=== PATIENT | male | born 1935 | race Caucasian/White ===

== ENCOUNTER 2016-11-03 17:30 | Inpatient (IN) | payer MEDICARE ==
[~2016-11-03] VITALS: Ht 165.1 cm; Wt 66.7 kg
--- NOTE | ~2016-11-03 | OR ---
PATIENT'S NAME: TORIN MICHELLE [facility] AGE: 81 Y [address] ROOM: [address] [address] LOCATION: [facility] ADMIT DATE: 11/03/2016 OR/Procedure Report DISCHARGE DATE: FAMILY PHYSICIAN: PHYSICIAN, NO ATTENDING PHYSICIAN: PEDRO LUIS WAGONER SURGEON: Jung Cristina MD GLUER: DATE OF PROCEDURE: 11/04/2016 DIAGNOSIS: Infected internal fixation, left ankle. PROCEDURE: 1. Removal of deep instrumentation, left ankle. 2. Irrigation and debridement left ankle wounds. 3. Aspiration of ankle joint. 4. Cultures. ANESTHESIA: General. INDICATION: Mr. Michelle is 31 year status post open reduction and internal fixation of left ankle. Over the last week, the left ankle has become painful, red, and swollen, has not responded to antibiotics. X-ray imaging shows a healed ankle fracture with medial malleolar screws x2 and lateral plate fixation with seven screws. One of the screws is backing out on examination, almost coming through the skin, perhaps related to the onset of infection. At this time, with the infected instrumentation, removal is indicated. We will also do an aspirate of the ankle joint. Risks, benefits, and alternatives have been discussed. DESCRIPTION OF PROCEDURE: Mr. Michelle was taken to the operating room, has not received any antibiotics at the [facility]. He did receive antibiotics on the outside since Tuesday. Schedule is not completely clear. General anesthetic via endotracheal tube. Tourniquet high about the left thigh. Left leg prepared with DuraPrep, draped sterilely. Fluoroscope was used, identified the location of the medial malleolar screws, a 1 cm transverse incision was made, both screws were removed without difficulty. The wound was debrided. The screw almost coming through the skin distally on the lateral side, 1 cm longitudinal incision, screw easily removed. There was purulence, this was cultured. Aerobic, anaerobic, fungal, and TB cultures of the fluoroscope, and an additional four small incisions made over the plate and allowed removal of the other six screws, small osteotome was used to elevate the subcutaneous tissues off the plate and also elevate the plate off the bone. The plate was removed without difficulty. The wound was irrigated. The ankle joint, there was no clear effusion, not suggestive of a septic joint, but an aspiration was taken of the joint. I did not feel there was a PATIENT'S NAME: TORIN MICHELLE [facility] AGE: 81 Y [address] ROOM: [id number] [place], [place] [address] LOCATION: [facility] ADMIT DATE: 11/03/2016 OR/Procedure Report DISCHARGE DATE: FAMILY PHYSICIAN: PHYSICIAN, NO ATTENDING PHYSICIAN: PEDRO LUIS WAGONER need to open the joint, do a formal arthrotomy. The stab wounds largely were opposed on their own with the infection, safe is not to close them, was wrapped with a bulky dressing soaked in normal saline and a K-pad for warm moist heat. After the cultures were taken, was started on vancomycin and Zosyn. Procedure was done without complication. Tourniquet time was 35 minutes. No blood loss. Specimens was an aspiration of the left ankle joint, which was bloody. No suggestion of purulence was sent for cultures. Cultures of the infected fixation were sent for aerobic, anaerobic, fungal, and TB cultures. Wounds left open and placed in a bulky saline soaked dressing with warm heat. JUNG CRISTINA MD DPM/mata /[id number] d: 11/04/162029 t: 11/24/16 1006, OPERATIVE SUMMARY
--- NOTE | ~2016-11-03 | DS ---
PATIENT'S NAME: TORIN LOZOYA [facility] AGE: 81 Y [address] ROOM: [address] [place], [place] [address] LOCATION: [facility] ADMIT DATE: 11/03/2016 Discharge Summary DISCHARGE DATE: 11/12/2016 FAMILY PHYSICIAN: PHYSICIAN, NO ATTENDING PHYSICIAN: Valeria Osborne PRINCIPAL DIAGNOSES: 1. Left ankle septic arthritis, culture negative. 2. Left shoulder gouty arthritis. 3. Severe physical deconditioning. 4. Protein-calorie malnutrition, [id number]. HOSPITAL COURSE: Please reference any admitting data to the history and physical as dictated by Dr. Osborne. 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 He was seen at his local facility and was given a shot of Rocephin and started on oral clindamycin. It did not get any better and he presented with fevers and worsening pain. He had an elevated CRP in the 50s and elevated procalcitonin level. There was some issues with transferring him from the outside facility to [facility] and with concerns of him becoming septic he was given IV vancomycin and IV cefepime and then transferred to [facility]. He was then admitted at [facility] and was consulted with Orthopedics and taken for surgery with Dr. Rm of Orthopedics after risks, benefits, and alternatives were discussed. The patient underwent removal of deep instrumentation of the left ankle, extensive irrigation and debridement, as well as aspiration of the ankle joint. He was kept on vancomycin and cefepime postoperatively. He was made nonweightbearing to that lower extremity and started on physical and occupational therapy. Infectious Disease consultation was obtained with Dr. Darnell. Cultures were observed and it did not grow anything. He did spike some low-grade fevers postoperatively. Initially, they were felt to be probable postoperative atelectasis because of his decreased mobility. We were unable to give him acetaminophen or NSAIDs because of history of allergies. He had no white count changes or appearance of any further infectious process. He did however complain of worsening left shoulder pain; so, Dr. Rm performed an aspiration of the shoulder, which did not appear to be infected in fact cultures were negative, but initial Gram stain did show positive for crystals. Steroids were considered, but not given in light of the infection in the ankle. Now with left upper extremity range of motion deficit and pain and nonweightbearing to the left lower extremity, it was extremely difficult for him to mobilize. He was requiring 2 person assist and total lift by nursing care; so, we investigated transition options for the patient. In the meantime, the patient did develop some edema in the left upper extremity, venous Doppler scan showed positive subacute occlusive superficial thrombosis in the left cephalic vein. As this is superficial, he was not treated with PATIENT'S NAME: TORIN LOZOYA [facility] AGE: 81 Y [address] ROOM: [place] [address] LOCATION: [facility] ADMIT DATE: 11/03/2016 Discharge Summary DISCHARGE DATE: 11/12/2016 FAMILY PHYSICIAN: , ANNE ATTENDING PHYSICIAN: Valeria Osborne anticoagulation; however, started on DVT prophylactic Lovenox without any complication. In discussion with consultation of Infectious Disease, it was felt that the patient best transition from IV vancomycin and IV cefepime to continued IV vancomycin and oral Cipro. Vancomycin peak and trough levels were monitored as well as kidney function without any problems. It was recommended 4 to 6 week antibiotics with a followup at 4 weeks with Infectious Disease to see the progress of the wound. Wet-to-dry dressing changes were ordered twice daily as per Orthopedics. By day of discharge, the patient had improved; however, not safe for return to home and so was transitioned to [facility]. CONSULTING PROVIDERS: 1. Dr. Jung Rm, Orthopedics. 2. Dr. Srinivasa Darnell of Infectious Disease. PROCEDURES: 1. Removal of hardware, irrigation and debridement, aspiration of the ankle joint on 11/04/[address] Jung Rm. 2. Aspiration of left shoulder joint on November 06. RADIOLOGIC IMAGING: Pertinent information with radiologic imaging was that the patient did undergo an MRI of the left ankle postoperatively on 11/06/2016, which did not show any MRI findings of osteomyelitis. Postoperative changes were present as expected with soft tissue swelling and edema. LABORATORY RESULTS: Initial CBC showed a mildly elevated white count of 13,000, normal hemoglobin of 12.1, hematocrit 34.5, and a platelet count 211. Creatinine was normal throughout his stay. Liver functions were normal. Sed rate on 11/05/2016 showed 41 and a CRP on 11/05/2016 showed a CRP of 15.60. Gram stain of the left shoulder aspirate was positive for crystals. MICROBIOLOGY DATA: Left shoulder aspirate did not show any fungal elements, fungal culture was negative, and body fluid culture was negative. Blood cultures x2 were no growth. Left ankle aspirate culture was no growth. DISCHARGE MEDICATIONS: 1. Vancomycin 750 mg IV every 8 hours with a stop date of December 15, 2016. 2. Ciprofloxacin 500 mg p.o. twice daily, stop date of December 15, 2016. 3. Colace 100 mg p.o. twice daily. 4. Dulcolax 10 mg per rectum as needed for constipation. 5. Dilaudid 2 mg p.o. every 3 hours as needed for pain. PATIENT'S NAME: TORIN LOZOYA [facility] AGE: 81 Y [address] ROOM: [place] [address] LOCATION: [facility] ADMIT DATE: 11/03/2016 Discharge Summary DISCHARGE DATE: 11/12/2016 FAMILY PHYSICIAN: PHYSICIAN, NO ATTENDING PHYSICIAN: Valeria Osborne 6. Milk of magnesia 30 mL p.o. twice daily as needed for constipation. 7. Ultram 50 mg p.o. every 4 hours as needed. 8. Blackwood-3 acid 1 g p.o. everyday. 9. Multivitamin 1 tablet p.o. everyday. 10. Lovenox 40 mg subcutaneous daily. DISCHARGE INSTRUCTIONS: The patient will be discharged to the [facility] by ambulance. Ambulance certification form was completed. The patient will remain full code status. His diet as tolerated. Weightbearing status is nonweightbearing to the left lower extremity with continued Occupational and Physical Therapy to continue to evaluate and treat the patient as indicated. He will need followup with his orthopedist Dr. Rm on 11/29/2016 at 1315 hours. Prior to his followup, he should have a left ankle x-ray on 11/29/2016 at noon for further evaluation. He does have a wound to the ankle area that will require b.i.d. wet-to-dry dressing changes with normal saline. If there is any questions about the dressing changes, Orthopedics to be consulted. Continued use of assistive device for mobility is recommended with fall precautions. Infectious Disease has recommended to follow up within the week of 12/01/2016 for antibiotic management. We have written for a weekly CBC, CMS, CRP, and sed rate to be faxed to the Infectious Disease doctors. I spoke with the accepting physician at the facility whom stated they have Telemedicine Infectious Disease, which they will provide consultation with upon his arrival to the swing bed. Routine PICC line cares were ordered. His rehab potential and discharge potential are both good and the patient and family are well- aware of his condition and prognosis. All questions were answered with statements of satisfaction. Total time arranging discharge was greater than 30 minutes. ANDRA ROCK APRN, APRN FOR MD BRANDO TOMPKINS/mata /[id number] CC: MD Dr. Rafi Fox [place] d: t: 11/15/16 1550, DISCHARGE SUMMARY
--- NOTE | ~2016-11-03 | OR ---
PATIENT'S NAME: TORIN MICHELLE [facility] AGE: 81 Y [address] ROOM: [place] [address] LOCATION: [facility] ADMIT DATE: 11/03/2016 OR/Procedure Report DISCHARGE DATE: FAMILY PHYSICIAN: PHYSICIAN, NO ATTENDING PHYSICIAN: PEDRO LUIS WAGONER SURGEON: Jung Cristina MD METAL BUFFER: DATE OF PROCEDURE: 11/06/2016 DIAGNOSES: 1. Left shoulder pain. 2. Recurring fevers. 3. On antibiotics. PROCEDURE: Aspiration of left shoulder joint. ANESTHESIA: Local. INDICATION: Mr. Michelle has been on a variety of antibiotics over the last week, has infection of an internal fixation of the left ankle and cellulitis about the left ankle and foot, that resolved; but he continues to have recurring fevers; today, he has significant left shoulder pain. Aspiration is indicated. DESCRIPTION OF PROCEDURE: At the bedside, the patient was positioned in a sitting position. Left shoulder was posteriorly prepared with Betadine painting, sterile field with drapes; 2 mL of 1% lidocaine infused at the entry point. An 18-gauge spinal needle was advanced into the shoulder joint. The shoulder was gently rotated which confirmed a good position. Aspirated 10 mL of cloudy fluid sent for crystals, cell count, and cultures with staining. Cultures included aerobic, anaerobic, fungal, and TB. Procedure done without complication. JUNG CRISTINA MD DPM/mata /[id number] d: 11/06/16 1705 t: 11/24/16 1008, OPERATIVE SUMMARY
--- NOTE | ~2016-11-03 | HP ---
PATIENT'S NAME: TORIN LOZOYA [facility] AGE: 81 Y [address] ROOM: [id number] [place], [place] [address] LOCATION: [facility] ADMIT DATE: 11/03/2016 History & Physical DISCHARGE DATE: FAMILY PHYSICIAN: PHYSICIAN, NO ATTENDING PHYSICIAN: PEDRO LUIS WAGONER DATE OF SERVICE: 11/03/2016 CHIEF COMPLAINT: Pain in the left ankle. HISTORY OF PRESENT ILLNESS: Mr. Miguel Angel (Joe) is an 81-year-old gentleman from [place], spent a lot of time in [place] and thus has had multiple traumas and fractures during his lifetime. He had had an ORIF of severe ankle injury in 1983. This was fine up until this past weekend after on Sunday, October 30, 2016, he developed pain after loading a massive railroad ties into a truck. On Tuesday, the pain was more severe, and he had called a neighbor who took him to a nurse practitioner on Tuesday, November 01, 2016, where he revealed he had a low-grade temperature of about 100.3 at home. At that time, his evaluation showed that he had a relatively benign past medical history with only taking multivitamins and fish oils at home. He had a low-grade fever and some increased swelling and redness in the left ankle joint with significant pain. He was given Rocephin IM and started on clindamycin t.i.d. He returned there this morning and had a temperature of 100.7, persisting his white count from Tuesday was 12.5. His sedimentation rate was 8. His lactate had been normal, but the send out results of CRP and procalcitonin came back at 54.8 and 0.17 respectively, and I agreed to accept him in transport. Few hours later, I was called back by Elizabeth Li, the nurse practitioner in [place], [place], who said she was having trouble arranging ambulance transport. During the interval, the patient had new results of urine specific gravity greater than 1.030, 2+ blood, and 2+ protein in the urine, but no white cells and no bacteria as temperature had spiked to 101.9, but he continued to have a systolic blood pressure in the 140s. Because of the fever, he was started on vancomycin and cefepime, and these were completed before he arrived here at about 6:00 p.m. this evening. The patient does report allergies to Tylenol, aspirin, and ibuprofen, all of which cause severe difficulty breathing and so these were not administered to him, and his temperature has come down to 99.3 on admission. PAST MEDICAL HISTORY: 1. Multiple fractures. PATIENT'S NAME: TORIN LOZOYA [facility] AGE: 81 Y [address] ROOM: [address] [address] LOCATION: [facility] ADMIT DATE: 11/03/2016 History & Physical DISCHARGE DATE: FAMILY PHYSICIAN: PHYSICIAN, NO ATTENDING PHYSICIAN: PEDRO LUIS WAGONER 2. Osteoarthritis. 3. History of warfarin use for unclear etiology. 4. Severe trauma in the mid with pneumothorax and crush injury to his spleen. 5. Skin cancer with 2 lesions removed from his back and 1 from his arm. PAST SURGICAL HISTORY: 1. ORIF to the left ankle in 1983. 2. 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 3. He had a splenectomy in 1989. FAMILY HISTORY: His mother of an RI around 69 years old. His father of what was thought to be metastatic stomach cancer at age 84. He has had multiple siblings, who had cancer. He had a brother who of some sort of bleeding disorder and multiple siblings with clotting disorders. In addition, his daughter has had cervical cancer and clotting disorder. SOCIAL HISTORY: He has been twice. 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 He has never smoked or drank. He has never been in the . ALLERGIES: PENICILLIN, TYLENOL, ALEVE, IBUPROFEN. ABOVE, TYLENOL, ALEVE, AND IBUPROFEN CAUSED SEVERE DYSPNEA. IMMUNIZATIONS: He denies being aware of having a pneumococcal vaccine. He denies influenza and shingles vaccine. REVIEW OF SYSTEMS: GENERAL: He weighs around 130. His baseline weight was 155-165. He reports low appetite, but his daughter reports this is essentially stable. He has had some additional fatigue and fever since his illness over the past 3 days. HEENT: He denies headache or blurred vision. He does have cataracts. He does not wear glasses. He denies sinus drainage, nosebleeds, sore throat, dysphagia, odynophagia. PULMONARY: He has had a dry cough with a history of pneumothorax, and he reports some shortness of breath. He says he just does not take a full breath. Otherwise, denies wheezing, chest pain, or orthopnea. His daughter reports that he does have some sleep apnea but he has not been tested. CARDIOVASCULAR: He has never had an RI. He denies heart pain, angina, racing heart, or ankle edema. GI: He denies GERD, nausea, vomiting, diarrhea, or constipation. He has had PATIENT'S NAME: TORIN LOZOYA [facility] AGE: 81 Y [address] ROOM: [address] [address] LOCATION: [facility] ADMIT DATE: 11/03/2016 History & Physical DISCHARGE DATE: FAMILY PHYSICIAN: PHYSICIAN, NO ATTENDING PHYSICIAN: PEDRO LUIS WAGONER no hematemesis, hematochezia, or melena. GENITOURINARY: He denies polyuria, nocturia, or frequent UTIs. NEUROLOGIC: He denies weakness, numbness, confusion, dysarthria, syncope, frequent falls, loss of balance, or memory loss. HEMATOLOGIC: There is a family history of blood disorders, and his daughter reports he had been on warfarin at some point, although he cannot tell me why he does not even take aspirin now though. MUSCULOSKELETAL: Joints and muscles as in the history above, he does have arthritis, history of multiple injuries, although there is no acute injury to this left ankle except for that he was lifting something heavy. ENDOCRINE: He has had night sweats for the past 2 nights, likely related to the fever with the ankle possible infection. DERMATOLOGIC: His skin is very weathered, has sun damage, and history of skin cancer, but no current rashes besides the erythema on the left ankle. PSYCHIATRIC: He has insomnia, but denies depression, anxiety, or other psychiatric illness. INFECTIOUS DISEASE: He denies any open wounds. He denies any foreign travel. HOME MEDICATIONS: 1. Multivitamin daily. 2. Fish oil daily. PHYSICAL EXAMINATION: GENERAL: This is a petite elderly male, who is bright and alert. HEENT: He does have significant temporal wasting. His eyes are blue. The left pupil is slightly smaller than the right, both are equal and reactive. Sclerae are anicteric. Palpebral conjunctivae. Conjunctivae are pink without exudate. The oropharynx is clear. He is edentulous. The soft palate lifts symmetrically. NECK: Supple without lymphadenopathy or thyromegaly. He is very tender on the lateral nodule on his right clavicle. There is no supraclavicular lymphadenopathy. LUNGS: Clear to auscultation and percussion bilaterally, very slightly tachypneic. There is no wheeze or other adventitious breath sounds. No CVA tenderness. No vertebral tenderness. CARDIOVASCULAR: Regular rate and rhythm without murmur, rub, or gallop. ABDOMEN: Flat, soft, nontender with hyperactive bowel sounds. There is no hepatosplenomegaly or masses. EXTREMITIES: There is no edema of the right foot. Pulses are 2+ and equal in upper and lower extremities. The left foot is chronically enlarged status post operative changes, and he does have edema there, slight pitting, and mild erythema which is patchy over the dorsum of the foot and of the medial and lateral malleoli. It is mildly tender. Strength in his extremities appears to be normal. NEUROLOGIC: He is alert and oriented to person, place, and time. PATIENT'S NAME: TORIN LOZOYA [facility] AGE: 81 Y [address] ROOM: [place] [address] LOCATION: [facility] ADMIT DATE: 11/03/2016 History & Physical DISCHARGE DATE: FAMILY PHYSICIAN: PHYSICIAN, NO ATTENDING PHYSICIAN: PEDRO LUIS WAGONER LABORATORY DATA: There is no new laboratory data from our facility. These labs were collected on 11/01/2016: White blood cell 12.5; neutrophils, absolute 9.1, 72.7%; lymphs 2.06 absolute and 16.2%; monos 10%; eos 0.4%; basos 0.5%; hemoglobin 14.4; hematocrit 44.9; MCV is 91; platelets were 228. Sedimentation rate was 8. His uric acid was 3.9, glucose 129, BUN 14, creatinine 0.9. Sodium 134, potassium 4.1, chloride 99, CO2 of 27, calcium 8.8, total protein 7.4, albumin 3.8, total bilirubin 1.5. This is slightly high according to the range which is 0.2-1.3. AST 25, ALT 30, alkaline phosphatase 77. Lactic acid was 1.2. Procalcitonin 0.17, the normal was 0.09. CRP 54.8. A clean catch on November 01, 2016, showed slightly cloudy yellow urine, glucose negative, bilirubin negative, ketones negative, blood trace, protein negative, nitrite negative, leukocyte esterase negative, and cast negative. Today, his platelet count is 208, his white blood cell count is 13.1. Blood in the urine has increased to 2+. Specific gravity was greater than 1.030. There is no radiographic imaging at this point. ASSESSMENT AND PLAN: 1. Septic arthritis, possible osteomyelitis, given the very high CRP. We will continue the antibiotic started empirically in the outlying facility due to his high fever with Vanco and cefepime and consult pharmacy for dosing. He has been seen by Dr. Darnell, who agrees with this plan, and we will reassess plans for antibiotics and other follow up after we hear from Dr. Rm with plan regarding possible removal of the hardware. 2. Generalized arthritis and pain. We have to avoid use of Tylenol, ibuprofen, or Aleve. We will give him morphine for severe pain. 3. Status post splenectomy. He will need the pneumococcal vaccines. This will be initiated at discharge. 4. DVT prophylaxis with SCDs prior to surgical intervention. DISPOSITION: Disposition will be decided according to any operative intervention that needs to be done. PEDRO LUIS WAGONER MD LM/mata /[id number] D: [id number] T: [id number] HISTORY & PHYSICAL
--- NOTE | ~2016-11-03 | CON ---
PATIENT'S NAME: TORIN MICHELLE [facility] AGE: 81 Y [address] ROOM: [id number] [place], [place] [address] LOCATION: G3N ADMIT DATE: 11/03/2016 Consultation DISCHARGE DATE: FAMILY PHYSICIAN: PHYSICIAN, NO ATTENDING PHYSICIAN: PEDRO LUIS WAGONER DATE OF CONSULTATION: 11/03/2016 REFERRING PHYSICIAN: Jung Rm MD REASON FOR CONSULTATION: Presumed septic left ankle. HISTORY OF PRESENT ILLNESS: Mr. Michelle is an 81-year-old male who sounds like he has really only had emergent care when he has had an injury in the past who since Tuesday he has had increasing pain and difficulty ambulating due to pain in his left ankle. He reports that many years ago he had a left ankle injury and fracture that required hardware placement and this was done in 1983. He had been doing okay, but recently had the pain in the left ankle and went ahead and was seen in the clinic. I checked some labs, gave him a shot of IM ceftriaxone, and gave him clindamycin 300 t.i.d. His symptoms worsened and he presented back today. He had also been having fevers, chills, and sweats. These started about the time that his left ankle pain really started. He resided back and was transferred down to [facility] in [place] for further evaluation and treatment. He denies any recent infections that he knows of. He is edentulous and had his teeth removed greater than 5 years ago. He has had a little sore in his right little toe, but has not had any need for treatment for it. He has not had any other specific things for infection. His daughter thinks he might have a sinus infection now because his eyes water, but he does not think there is anything going on there. He has had some weight loss over the years and he has normally between 155 and 165 and is down to 135. He notes that he has a poor appetite. He has never smoked. 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 It does not appear that he has had any immunizations related to this. This might have been in 1988 or 1994 and they are not really sure exactly when it happened. He was transferred down here for further evaluation. Infectious Disease was asked to see him in conjunction with Orthopedics. It sounds like Dr. Rm is going to see him and perhaps do a surgery on him tomorrow on his ankle. PAST MEDICAL HISTORY: Significant for the multiple traumas, left ankle surgery with plating, he has had injury to the kidney and spleen, he is status post a splenectomy, it sounds like he had a pneumothorax, does not appear to have any chronic medical PATIENT'S NAME: TORIN MICHELLE [facility] AGE: 81 Y [address] ROOM: [address] [address] LOCATION: [facility] ADMIT DATE: 11/03/2016 Consultation DISCHARGE DATE: FAMILY PHYSICIAN: PHYSICIAN, NO ATTENDING PHYSICIAN: PEDRO LUIS WAGONER. MEDICATIONS: His only medications listed are for the clindamycin and then fish oil and a multivitamin. ALLERGIES: HE SAYS HE IS ALLERGIC TO TYLENOL AND ALL THE NONSTEROIDALS BECAUSE THEY CAUSE HIM TO PASS OUT. HE MENTIONED PENICILLIN WELL, BUT HAS TOLERATED THE CEPHALOSPORINS WELL. SOCIAL HISTORY: He has been doing [employer] for "50 years." He has been twice. He has a daughter and a son. He has never drank or used illicit drugs or smoked. FAMILY HISTORY: Noncontributory to his current illness. REVIEW OF SYSTEMS: All remaining review of systems otherwise negative with pertinent positives and negatives in his HPI. PHYSICAL EXAMINATION: GENERAL: He is a thin, elderly male, is not acutely toxic, he is awake, alert, spiked a temp up to 101.9, prior to transfer from [facility] to [facility]. HEENT: NC/AT. EOMI. Pupils react. His oropharynx, he is edentulous. There is no erythema. NECK: Supple. LUNGS: Clear. HEART: Regular S1, S2. ABDOMEN: Soft and nontender. EXTREMITIES: There is a little bit of edema around the left foot and ankle and there is erythema, it is warm, and it is not really tender. Right ankle and foot looks okay. He may have some onychomycosis. LABORATORY DATA: Data from [facility], he has a white count of 12.5, hemoglobin 14.2, and platelet count of 228. Creatinine of 0.9. Normal LFTs. On 11/01/2016, today, he had a white count of 13.1, hemoglobin of 14.6. Sed rate is 23. X- ray showed ORIF changes, atherosclerotic vascular disease, and soft tissue swelling. ASSESSMENT AND PLAN: 1. Likely, septic left ankle with hardware. Ortho eval, likely needs I and PATIENT'S NAME: TORIN MICHELLE [facility] AGE: 81 Y [address] ROOM: [address] [address] LOCATION: [facility] ADMIT DATE: 11/03/2016 Consultation DISCHARGE DATE: FAMILY PHYSICIAN: PHYSICIAN, NO ATTENDING PHYSICIAN: PEDRO LUIS WAGONER and hardware removal. We will see what culture show, but he has received broad-spectrum antibiotics thus far; so, may be difficult to get the organism, we will see what we find, and will likely need 4 to 6 weeks of intravenous antibiotics and again will depend on the getting organism and what grows and what routes of treatment we have available to us. 2. He has had a splenectomy, he needs Pneumovax and Prevnar as per normal immunization protocol. Likely, could get the meningococcal vaccine as well; however, his risk at his age and where he lives would probably be pretty small and the Pneumovax would be a bigger deal for him. We will follow along and please call with questions. MD ROSANGELA RICHEY/mata /[id number] d: 11/04/16 0234 t: 11/04/16 0838, CONSULTATION REPORT
--- NOTE | ~2016-11-03 | CON ---
PATIENT'S NAME: TORIN MICHELLE [facility] AGE: 81 Y [address] ROOM: [place] [address] LOCATION: [facility] ADMIT DATE: 11/03/2016 Consultation DISCHARGE DATE: FAMILY PHYSICIAN: PHYSICIAN, NO ATTENDING PHYSICIAN: PEDRO LUIS WAGONER DATE OF CONSULTATION: 11/03/2016 REFERRING PHYSICIAN: Jung Cristina MD TIME SEEN: 9 p.m. HISTORY OF PRESENT ILLNESS: Mr. Michelle is an 81-year-old white male, healthy, 30 years status post open reduction and internal fixation of a left ankle fracture. He has done well over the years. Denies ever having any infection. Tuesday without significant event, the skin about the left ankle became red, tender, and swollen. Local hospitalist started him on antibiotics, has not improved, became more painful and more swollen and more red over each day. MEDICATIONS: None. ALLERGIES: PENICILLIN, TYLENOL, AND MORPHINE. PAST MEDICAL HISTORY: Healthy. Does not smoke. Does not chew. No alcohol. No drug abuse. REVIEW OF SYSTEMS: As above. FAMILY MEDICAL HISTORY: Noncontributory. PERSONAL AND SOCIAL HISTORY: Lives independently. PHYSICAL EXAMINATION: GENERAL: White male, in no acute distress. HEENT: Hears and sees. NECK: Nontender. BACK: Mildly tender. HEART: Pulse rate is regular. LUNGS: Able to take in a deep breath. PATIENT'S NAME: TORIN MICHELLE [facility] AGE: 81 Y [address] ROOM: [place] [address] LOCATION: [facility] ADMIT DATE: 11/03/2016 Consultation DISCHARGE DATE: FAMILY PHYSICIAN: PHYSICIAN, NO ATTENDING PHYSICIAN: PEDRO LUIS WAGONER ABDOMEN: Soft. EXTREMITIES: Left ankle: Fixation on the lateral side, the most distal screw markedly prominent. There is redness about the lateral plate. There is also redness about the medial malleolar screws. Also, some redness on the dorsum of the foot. Not a significant effusion within the ankle. Markedly tender. Foot is neurovascularly intact. IMAGING: X-rays were reviewed. Left ankle fixation. 8-hole plate on the lateral side with 7 screws, distal screw was backed out. Medial side to medial malleolar screws in place. Fractures have all healed. Mild osteoarthritis. No bone destruction obvious. ASSESSMENT AND PLAN: Infection about the previous fixation of the left ankle. Fracture is healed. No need for fixation at this time. We will plan for removal of fixation and deep cultures. Risks, benefits, and alternatives have been discussed. Certainly, if there is obvious osteomyelitis, we will debride at the time of surgery. May require additional imaging of the foot if the infection does not resolve. Risks, benefits, and alternatives have all been discussed. JUNG CRISTINA MD DPM/mata /[id number] d: 11/04/16316 t: 11/24/16 1003, CONSULTATION REPORT
--- NOTE | ~2016-11-03 | ENPV ---
Vascular Upper Extremities Veins Procedure Demographics Patient Name TORIN LOZOYA Date of Study 11/11/2016 Patient Number [id number] Gender Male Date of 1935 Age 81 Visit Number [id number] Height Accession Number [id number] Weight Room Number G3305 BSA BMI Referring Bobby Lia Wilde PAC Interpreting Monico Posada MD Physician Dylon Shaw MD Physician Physician Ordering Physician Bobby Wilde PAC [employer] Developer Florencio Davis T, [facility] Conclusions Summary There is subacute occlusive superficial thrombus in the left cephalic vein in the forearm. Procedure Type of Study: Veins:Upper Extremities Veins, Upper Extremity Left. Indications for Study:Edema. Appropriate Use Criteria:8 Patient Status:Routine. Study Location:Inpatient Portable. Technical Quality:Adequate visualization. - Preliminary reported to:Lia Rosales and the patient's nurse at 1630. Velocities are measured in cm/s ; Diameters are measured in cm Right UE Vein Measurements 2D and Doppler Measurements + + + + +--------+ + !Location !Visualized !Compressibility !Thrombosis !Signal !Reflux ! + + + + +--------+ + !IJV !Yes !Yes !None !Phasic ! ! + + + + +--------+ + Left UE Vein Measurements 2D and Doppler Measurements + + + + +--------+--------+ !Location !Visualized !Compressibility !Thrombosis !Signal !Reflux ! + + + + +--------+--------+ !IJV !Yes !Yes !None !Phasic ! ! + + + + +--------+--------+ !SCV !Yes !Yes !None !Phasic ! ! + + + + +--------+--------+ !Innominate !Yes !Yes !None !Phasic ! ! + + + + +--------+--------+ !Axillary !Yes !Yes !None !Phasic ! ! + + + + +--------+--------+ !Brachial !Yes !Yes !None !Phasic ! ! + + + + +--------+--------+ !Radial !Yes !Yes !None !Phasic ! ! + + + + +--------+--------+ !Ulnar !Yes !Yes !None !Phasic ! ! + + + + +--------+--------+ !Basilic !Yes !Yes !None !Phasic ! ! + + + + +--------+--------+ !Cephalic !Yes !No !Sub-acute !Absent ! ! + + + + +--------+--------+ Signature dtt: KAELA VASQUEZ dtd: 11/11/16 1555 Physician Self Edit
[2016-11-03] MEDS ORDERED: LOVAZA1 GM PO (19:19)
[2016-11-03] MEDS ORDERED: CENTRUM SILVER1 EAC5 PO (19:20)
[2016-11-03] MEDS ORDERED: CLINDAMYCIN HC300 MG PO (19:22)
[2016-11-04 05:40] LABS: BASOPHIL % 0.2 %; HEMATOCRIT 36.1 % (33.0-50.0); IMMATURE GRANULOCYTE % 0.3 %; LYMPHOCYTE # 2.1 K/uL (0.8-4.0); LYMPHOCYTE % 15.8 %; MCH 31.9 pg (27.0-34.0); MCV 88.7 fl (83.0-98.0); MONOCYTE % 14.7 %; MPV 8.9 fl (9.4-12.4); NEUTROPHIL # (ANC) 9.2 K/uL (1.4-9.0); NRBC % 0 /100WBC (0-0.00); PLATELET COUNT 214 K/uL (150-450); RBC 4.07 M/uL (3.50-5.50); RDW-CV 12.9 % (11.9-14.6); WBC 13.4 K/uL (4.0-11.0)
[2016-11-04 05:50] LABS: INR - (THERAPEUTIC) 1.07 (0.92-1.07); PROTIME 11.2 SECONDS (9.8-11.4); PTT 29 SECONDS (25-32)
[2016-11-04 05:57] LABS: ALBUMIN 2.5 gm/dL (3.5-5.0); ALK PHOS 67 IU/L (33-138); ALT 19 IU/L (12-78); ANION GAP 9.2 (10.0-19.0); AST 18 IU/L (10-40); BLOOD UREA NITROGEN 13 mg/dL (6-24); CALCIUM 7.9 mg/dL (8.5-10.5); CHLORIDE 103 mMol/L (96-110); CO2 25 mMol/L (22-32); CREATININE 0.8 mg/dL (0.6-1.3); ESTIMATED GFR (MDRD EQUATION) > 60; MAGNESIUM 2.1 mg/dL (1.8-2.6); POTASSIUM 4.2 mMol/L (3.7-5.1); SODIUM 133 mMol/L (135-145); TOTAL BILIRUBIN 1.2 mg/dL (0.0-1.5); TOTAL PROTEIN 6.3 g/dL (6.0-8.4)
[2016-11-05 05:34] LABS: BASOPHIL % 0.1 %; EOSINOPHIL % 0.1 %; HEMATOCRIT 34.5 % (33.0-50.0); HEMOGLOBIN 12.1 g/dL (11.0-16.0); IMMATURE GRANULOCYTE % 0.3 %; LYMPHOCYTE # 1.4 K/uL (0.8-4.0); LYMPHOCYTE % 10.3 %; MCHC 35.1 gm/dL (32.0-36.5); MCV 91.3 fl (83.0-98.0); MONOCYTE # 1.8 K/uL (0.0-1.0); MONOCYTE % 13.1 %; NEUTROPHIL # (ANC) 10.4 K/uL (1.4-9.0); NEUTROPHIL % 76.1 %; NRBC % 0 /100WBC (0-0.00); PLATELET COUNT 211 K/uL (150-450); RBC 3.78 M/uL (3.50-5.50); RDW-CV 13.2 % (11.9-14.6); WBC 13.7 K/uL (4.0-11.0)
[2016-11-05 05:54] LABS: CREATININE 0.9 mg/dL (0.6-1.3); ESTIMATED GFR (MDRD EQUATION) > 60
[2016-11-06 05:05] LABS: CREATININE 0.7 mg/dL (0.6-1.3); ESTIMATED GFR (MDRD EQUATION) > 60
[2016-11-07 05:00] LABS: CREATININE 0.7 mg/dL (0.6-1.3); ESTIMATED GFR (MDRD EQUATION) > 60
[2016-11-08 05:53] LABS: CREATININE 0.6 mg/dL (0.6-1.3); ESTIMATED GFR (MDRD EQUATION) > 60
[2016-11-09 05:33] LABS: CREATININE 0.6 mg/dL (0.6-1.3); ESTIMATED GFR (MDRD EQUATION) > 60
[2016-11-10 05:46] LABS: CREATININE 0.6 mg/dL (0.6-1.3); ESTIMATED GFR (MDRD EQUATION) > 60
[2016-11-11 03:35] LABS: CREATININE 0.6 mg/dL (0.6-1.3); ESTIMATED GFR (MDRD EQUATION) > 60
[2016-11-12 05:41] LABS: CREATININE 0.7 mg/dL (0.6-1.3); ESTIMATED GFR (MDRD EQUATION) > 60
== END 2016-11-12 11:15 | DRG 854 ==
LOC: G3N 17:53
PROVIDERS: Orthopaedic Surgery; ADMIT Internal Medicine
PROC: 0SP Lower Joints, Removal (ICD-10-PCS; principal; 2016-11-04)
PROC: 0X9 Anatomical Regions, Upper Extremities, Drainage (ICD-10-PCS; 2016-11-06)
DX: A41.9 Sepsis, unspecified organism (principal); E44.0 Moderate protein-calorie malnutrition; M00.9 Pyogenic arthritis, unspecified; T84.59XA Infection and inflammatory reaction due to other internal joint prosthesis, initial encounter; J98.11 Atelectasis; M19.90 Unspecified osteoarthritis, unspecified site; Z88.8 Allergy status to other drugs, medicaments and biological substances; Z90.81 Acquired absence of spleen; Z96.642 Presence of left artificial hip joint; Z87.81 Personal history of (healed) traumatic fracture; M25.512 Pain in left shoulder
CPT/HCPCS: C1751; J0692; J1650; J2543; J3370; J7040; J7050; J7120

== ENCOUNTER → 2016-11-12 | Outpatient (CLI) | payer MEDICARE ==
[~2016-11-12] MED LIST: CENTRUM SILVER1 EAC5 PO; CLINDAMYCIN HC300 MG PO; LOVAZA1 GM PO
== END | disposition disaster alternative care site (69) ==
LOC: GAMB 11:19
DX: A41.9 Sepsis, unspecified organism (principal); M79.672 Pain in left foot
CPT/HCPCS: A0425; A0428